=== PATIENT | female | born 1970 | race Asian ===

== ENCOUNTER 2017-02-19 15:22 | Emergency (ER) | payer OTHER ==
[~2017-02-19] VITALS: Ht 154.9 cm; Wt 59.0 kg
[~2017-02-19 15:22] MED LIST: HYDR1INJ8; HYDR7.5T
[2017-02-19] MEDS ORDERED: HYDROmorphone HCL 2 MG/ML VL IV ONE ×2 (19:00→22:30)
[2017-02-19] MEDS ORDERED: ONDANSETRON HCL 4 MG/2 ML VIAL IV ONE (19:00)
[2017-02-19] MEDS ORDERED: PROPOFOL 100 ML IV ONE (20:43)
[2017-02-20] MEDS ORDERED: ONDANSETRON HCL 4 MG/2 ML VIAL IV ONE (04:00)
[2017-02-20] MEDS ORDERED: HYDROmorphone HCL 2 MG/ML VL IV ONE (04:00)
[2017-02-20] MEDS ORDERED: ACETAMINOPHEN 500 MG TAB PO ONE (07:45)
[2017-02-20 08:05] VITALS: BP 130/73
== END 2017-02-20 08:33 | disposition home or self-care (01) ==
LOC: EDBD 15:22 → ER 15:27
DX: M24.451 Recurrent dislocation, right hip (principal); M87.059 Idiopathic aseptic necrosis of unspecified femur; Z96.641 Presence of right artificial hip joint; Z88.6 Allergy status to analgesic agent; X50.1XXA Overexertion from prolonged static or awkward postures, initial encounter; Y93.89 Activity, other specified; Y99.8 Other external cause status; Y92.89 Other specified places as the place of occurrence of the external cause
CPT/HCPCS: 27265; 73502; 96374; 96375; 96376; 99152; 99153; 99285; J1170; J2405; J2704

== ENCOUNTER 2017-04-28 16:04 | Emergency (ER) | payer OTHER ==
[~2017-04-28] VITALS: Ht 154.9 cm; Wt 61.7 kg
[2017-04-28] MEDS ORDERED: PROPOFOL 10 MG/ML 20 ML IV ONE (17:00)
[2017-04-28] MEDS ORDERED: PROPOFOL 100 ML IV ONE (17:29)
[2017-04-28] MEDS ORDERED: ETOMIDATE (2MG/ML) 20ML VIAL IV ONE ×2 (17:43→18:15)
[2017-04-28] MEDS ORDERED: HYDROmorphone HCL 2 MG/ML VL IV ONE (18:15)
[2017-04-28] MEDS ORDERED: ONDANSETRON HCL 4 MG/2 ML VIAL IV ONE (18:15)
[2017-04-28] MEDS ORDERED: ATROPINE SULF 0.5 MG/5ML SYR ONE (18:49)
[2017-04-28 19:05] LABS: Basophils # (auto) 0 uL; Basophils % (auto) 0.6 % (0.0-2.0); CONDITION Y; Eosinophils # (auto) 0.2 uL; Eosinophils % (auto) 2.7 % (0.0-7.0); Hematocrit 42.8 % (36.0-46.0); Hemoglobin 14.5 g/dL (12.2-16.2); Lymphocytes # (auto) 1.6 uL; Lymphocytes % (auto) 28.6 % (10.0-50.0); Mean Corpuscular Hgb Conc. 33.9 g/dL (32.0-36.0); Mean Corpuscular Volume 88.7 fL (80.0-100.0); Mean Platelet Volume 9.5 fL (7.4-10.4); Monocytes # (auto) 0.4 uL; Monocytes % (auto) 6.4 % (0.0-12.0); Neutrophils # (auto) 3.5 uL; Neutrophils % (auto) 61.7 % (37.0-80.0); Platelet Count (auto) 338 10^3/uL (140-450); Red Cell Distribution Width 14.7 % (11.6-16.0); White Blood Cell 5.6 10^3/uL (4.4-10.8)
[2017-04-28 19:16] LABS: Calcium 9.2 mg/dL (8.5-10.1); Potassium 4.2 mmol/L (3.5-5.1)
[2017-04-28 19:18] LABS: BUN/Creatinine Ratio 19.3
[2017-04-28 19:23] LABS: INR 0.95 (0.9-1.15); Partial Thromboplastin Time 26.1 sec (22.64-33.71); Prothrombin Time 10.4 sec (9.37-12.3)
[2017-04-28 20:49] VITALS: BP 118/78
== END 2017-04-28 18:59 | disposition home or self-care (01) ==
LOC: EDBD 16:04 → ER 16:21
DX: M24.451 Recurrent dislocation, right hip (principal); Z79.899 Other long term (current) drug therapy; M32.9 Systemic lupus erythematosus, unspecified; F17.210 Nicotine dependence, cigarettes, uncomplicated; Z88.6 Allergy status to analgesic agent; W18.39XA Other fall on same level, initial encounter; Y93.89 Activity, other specified; Y92.89 Other specified places as the place of occurrence of the external cause; Y99.8 Other external cause status
CPT/HCPCS: 27265; 36415; 73502; 80048; 84702; 85025; 85610; 85730; 94761; 96374; 96375; 99152; 99285; J0461; J1170; J2405; J2704; J7030